=== PATIENT | female | born 1935 | race Caucasian/White ===

== ENCOUNTER 2017-08-17 02:10 | Inpatient (IN) | payer MEDICARE ==
[~2017-08-17] VITALS: Ht 154.9 cm; Wt 61.4 kg
[~2017-08-17 02:10] MED LIST: AMLO5TAB PO; AMLO5TAB21 PO
[2017-08-17 02:39] LABS: BASOPHILS % (AUTO) 0.6 % (0-1); EOSINOPHILS # (AUTO) 0.3 X10'3 (0-0.9); EOSINOPHILS % (AUTO) 4.9 % (0-6); HEMOGLOBIN 14.6 g/dl (12.0-16.0); LYMPHOCYTES # (AUTO) 2.7 X10'3 (1.1-4.8); LYMPHOCYTES % (AUTO) 41.8 % (21-51); MEAN CORPUSCULAR HEMOGLOBIN 32.8 PG (27.0-31.0); MEAN CORPUSCULAR HGB CONC 34.8 % (33.0-36.5); MEAN CORPUSCULAR VOLUME 94.4 FL (78-98); MEAN PLATELET VOLUME 9.1 FL (7.4-10.4); MONOCYTES # (AUTO) 0.7 X10'3 (0-0.9); MONOCYTES % (AUTO) 10.6 % (2-12); NEUTROPHILS # (AUTO) 2.7 X10'3 (1.8-7.7); NEUTROPHILS % (AUTO) 42.1 % (42-75); PLATELET COUNT 245 X10'3 (140-440); RED BLOOD COUNT 4.45 X10'6 (4.20-5.60); RED CELL DISTRIBUTION WIDTH 13.5 % (11.5-14.5); WHITE BLOOD COUNT 6.4 X10'3 (4.5-11.0)
[2017-08-17 02:45] LABS: INR 0.9 INR; PARTIAL THROMBOPLASTIN TIME 26 SECONDS (22-32); PROTHROMBIN TIME 9.7 SECONDS (9.0-12.0)
[2017-08-17 02:55] LABS: CLARITY,URINE CLEAR (Clear); COLOR,URINE YELLOW (Yellow); GLUCOSE, URINE NEGATIVE (Neg); KETONES,URINE NEGATIVE (Neg); LEUKOCYTE ESTERASE ,URINE NEGATIVE (Neg); NITRITES, URINE NEGATIVE (Neg); OCCULT BLOOD,URINE NEGATIVE (Neg); PROTEIN,URINE NEGATIVE (Neg); UROBILINOGEN,URINE 0.2 E.U/dL (0.2-1.0)
[2017-08-17 02:57] LABS: ALANINE AMINOTRANSFERASE 24 U/L (12-78); ALBUMIN 3.7 G/DL (3.4-5.0); ALBUMIN/GLOBULIN RATIO 0.9 (1.1-1.5); ALKALINE PHOSPHATASE 83 IU/L (46-116); ANION GAP 9 (8-16); ASPARTATE AMINO TRANSFERASE 16 U/L (10-37); BILIRUBIN,TOTAL 0.3 MG/DL (0.1-1.0); BLOOD UREA NITROGEN 22 MG/DL (7-18); BUN/CREATININE RATIO 20.8 (6.6-38.0); CALCIUM 9.2 MG/DL (8.5-10.1); CHLORIDE 103 MMOL/L (99-107); CREATININE 1.06 MG/DL (0.40-0.90); GLUCOSE 146 MG/DL (70-104); MAGNESIUM 2.4 MG/DL (1.5-2.4); POTASSIUM 3.6 MMOL/L (3.5-5.1); SODIUM 139 MMOL/L (135-145); TOTAL CARBON DIOXIDE 27.5 MMOL/L (24-32); TOTAL PROTEIN 7.8 G/DL (6.4-8.2); eGFR 50 ML/MIN
[2017-08-17 02:58] LABS: UA COLLECTION TYPE CLN CATCH MIDSTREAM
[2017-08-17] MEDS ORDERED: normal saline 1000ML IV soln IVB ONE (05:50)
[2017-08-17] MEDS ORDERED: meclizine 12.5mg tablet PO ONE (05:50)
[2017-08-17] MEDS ORDERED: normal saline 500ml IV soln 1,000 ML IV ONE ×2 (09:10→11:30)
[2017-08-17] MEDS ORDERED: magnesium 2GM in 50ml NS 50 ML IV PRN (09:15)
[2017-08-17] MEDS: K and/or MAG REPLACEMENT MC SCH (09:15)
[2017-08-17] MEDS ORDERED: magnesium hydroxide 30ml (MOM) UD suspension PO PRN (09:15)
[2017-08-17] MEDS ORDERED: potassium Cl 20 mEq SR tablet PO PRN ×2 (09:15)
[2017-08-17] MEDS ORDERED: ondansetron/PF 4mg/2ml inj IV PRN (09:15)
[2017-08-17] MEDS ORDERED: magnesium Cl slow-release 64mg tablet PO PRN (09:15)
[2017-08-17] MEDS ORDERED: potassium Cl 40MEQ/NS 500ml 500 ML IV PRN ×2 (09:15)
[2017-08-17] MEDS ORDERED: meclizine 12.5mg tablet PO PRN (09:15)
[2017-08-17] MEDS ORDERED: mag hydrox/Alum hydrox/simeth 30ml oral suspension PO PRN (09:15)
[2017-08-17] MEDS ORDERED: acetaminophen 325mg tablet PO PRN ×2 (09:15)
[2017-08-17] MEDS ORDERED: magnesium 4gm in 100ml NS 100 ML IV PRN (09:15)
[2017-08-17] MEDS: aspirin 325mg tablet PO SCH ×2 (09:25→10:30)
[2017-08-17 10:05] LABS: CHOL/HDL RATIO 9.6 (0.00-4.99); CHOLESTEROL 249 MG/DL (0-200); HDL CHOLESTEROL 26 MG/DL (35-60); LDL CHOLESTEROL 173 MG/DL (50-100); TRIGLYCERIDES 269 MG/DL (20-135)
[2017-08-17] MEDS: normal saline 1000ml 1,000 ML IV SCH ×2 (10:32→23:32)
[2017-08-17 11:05] VITALS: BP 143/72
[2017-08-17 18:00] VITALS: BP 143/69
[2017-08-17 20:00] VITALS: BP_SYST 130; BP_SYST 135; BP_SYST 140; BP_DIAS 62; BP_DIAS 65
[2017-08-17] MEDS ORDERED: temazepam 15mg capsule PO PRN (21:00)
[2017-08-17 22:00] VITALS: BP 116/61
[2017-08-18] VITALS (7 sets, daily range): BP systolic 125–157; BP diastolic 59–77
[2017-08-18] MEDS: normal saline 1000ml 1,000 ML IV SCH (04:52)
[2017-08-18 06:39] LABS: HEMATOCRIT 33.5 % (35.0-45.0); HEMOGLOBIN 11.6 g/dl (12.0-16.0); MEAN CORPUSCULAR HEMOGLOBIN 32.8 PG (27.0-31.0); MEAN CORPUSCULAR HGB CONC 34.6 % (33.0-36.5); MEAN CORPUSCULAR VOLUME 94.8 FL (78-98); MEAN PLATELET VOLUME 8.9 FL (7.4-10.4); PLATELET COUNT 195 X10'3 (140-440); RED BLOOD COUNT 3.53 X10'6 (4.20-5.60); RED CELL DISTRIBUTION WIDTH 13.8 % (11.5-14.5); WHITE BLOOD COUNT 4.9 X10'3 (4.5-11.0)
[2017-08-18] MEDS ORDERED: SYN0.088T PO (06:44)
[2017-08-18] MEDS ORDERED: TRIA1TAB3 PO (06:45)
[2017-08-18 06:50] LABS: ALBUMIN 2.8 G/DL (3.4-5.0); ANION GAP 6 (8-16); BLOOD UREA NITROGEN 20 MG/DL (7-18); BUN/CREATININE RATIO 20.2 (6.6-38.0); CALCIUM 8.5 MG/DL (8.5-10.1); CHLORIDE 110 MMOL/L (99-107); CREATININE 0.99 MG/DL (0.40-0.90); GLUCOSE 117 MG/DL (70-104); MAGNESIUM 2.3 MG/DL (1.5-2.4); POTASSIUM 4.1 MMOL/L (3.5-5.1); SODIUM 145 MMOL/L (135-145); TOTAL CARBON DIOXIDE 28.7 MMOL/L (24-32); eGFR 54 ML/MIN
[2017-08-18] MEDS: K and/or MAG REPLACEMENT MC SCH (08:00)
[2017-08-18] MEDS ORDERED: atorvastatin 20mg tablet PO SCH (08:00)
[2017-08-18] MEDS ORDERED: enoxaparin 40mg/0.4ml syringe SUBCUT SCH (08:00)
[2017-08-18] MEDS: aspirin 325mg tablet PO SCH (08:08)
[2017-08-18] MEDS ORDERED: APIX5TAB3 PO (15:09)
[2017-08-18] MEDS ORDERED: ATOR20TA66 PO (15:09)
[2017-08-18] MEDS ORDERED: apixaban 5mg tablet PO SCH (15:10)
[2017-08-18] MEDS ORDERED: levoTHYROXINE 25mcg tablet PO SCH (17:00)
== END 2017-08-18 16:15 | disposition home or self-care (01) | DRG 683 ==
LOC: ER 02:10 → ED HOLD 09:14 → ORTHO 4S 11:24
PROVIDERS: ADMIT Family Medicine; ATTEND Family Medicine
DX: N17.9 Acute kidney failure, unspecified (principal); G45.9 Transient cerebral ischemic attack, unspecified; E11.22 Type 2 diabetes mellitus with diabetic chronic kidney disease; I48.0 Paroxysmal atrial fibrillation; E03.9 Hypothyroidism, unspecified; E78.5 Hyperlipidemia, unspecified; E78.00 Pure hypercholesterolemia, unspecified; I12.9 Hypertensive chronic kidney disease with stage 1 through stage 4 chronic kidney disease, or unspecified chronic kidney disease; N18.9 Chronic kidney disease, unspecified; Z79.899 Other long term (current) drug therapy; Z87.891 Personal history of nicotine dependence
CPT/HCPCS: 36415; 70450; 70546; 70551; 71045; 72125; 72128; 72131; 72148; 80048; 80053; 80061; 81003; 83735; 84439; 84443; 84484; 85025; 85027; 85610; 85730; 87070; 93005; 93306; 93880; 96360; 96361; 97116; 97162; 99285; A6258; J1650; J7030; J8597

== ENCOUNTER 2017-08-28 14:30 | Inpatient (IN) | payer MEDICARE ==
[~2017-08-28] VITALS: Ht 149.9 cm; Wt 56.7 kg
[~2017-08-28 14:30] MED LIST changes: -AMLO5TAB PO; -AMLO5TAB21 PO; +ATOR40TA PO; +LEVO50TA PO; +RIVA20TA PO; +TRIA1CAP6 PO
[2017-08-30] VITALS (17 sets, daily range): BP systolic 124–167; BP diastolic 54–89
[2017-08-30] MEDS ORDERED: ringers solution, lacted 1,000 ML IV SCH (05:00)
[2017-08-30] MEDS ORDERED: famotidine 20mg tablet PO ONE (05:30)
[2017-08-30] MEDS ORDERED: ceFAZolin 2gm in dextrose, iso 100 ML IV ONE (05:30)
[2017-08-30] MEDS ORDERED: nitroGLYCERIN-Tridil 50MG/D5W 250 ML IV PRN ×2 (09:26→13:33)
[2017-08-30] MEDS ORDERED: phenylephrine inj 10 MG in normal saline 250ml IV soln 250 ML IV PRN ×2 (09:26→13:33)
[2017-08-30 10:36] LABS: CLARITY,URINE TURBID (Clear); COLOR,URINE YELLOW (Yellow); GLUCOSE, URINE NEGATIVE (Neg); KETONES,URINE NEGATIVE (Neg); LEUKOCYTE ESTERASE ,URINE NEGATIVE (Neg); NITRITES, URINE NEGATIVE (Neg); OCCULT BLOOD,URINE NEGATIVE (Neg); PH,URINE 5.5 (4.8-8.0); PROTEIN,URINE NEGATIVE (Neg); UROBILINOGEN,URINE 0.2 E.U/dL (0.2-1.0)
[2017-08-30 10:38] LABS: UA COLLECTION TYPE VOIDED
[2017-08-30 10:43] LABS: MUCUS STRANDS MANY /LPF (Neg); SQUAMOUS EPITHELIAL CELL,UR MANY /LPF (FEW); TRANSITIONAL EPI CELLS,URINE MODERATE /HPF
[2017-08-30 10:44] LABS: BACTERIA,URINE 4+ /HPF (Neg); RBC,URINE NONE SEEN /HPF (0-2); WBC,URINE 0-4 /HPF (0-4)
[2017-08-30] MEDS ORDERED: nitroGLYCERIN-Tridil 50MG/D5W 250 ML IV ONE (12:25)
[2017-08-30] MEDS ORDERED: fentaNYL /PF 50mcg/ml 5ml ampule ONE (12:27)
[2017-08-30] MEDS ORDERED: midazolam 2 mg/2 ml injection ONE (12:28)
[2017-08-30] MEDS ORDERED: LIDOcaine 1% 30ml preserv. free vial ONE (12:35)
[2017-08-30] MEDS ORDERED: heparin 10,000 units/1 ML INJ ONE (12:35)
[2017-08-30] MEDS ORDERED: sevoflurane 250ml liquid IH ONE (12:40)
[2017-08-30] MEDS ORDERED: ondansetron/PF 4mg/2ml inj IV PRN ×2 (13:05→13:35)
[2017-08-30] MEDS ORDERED: HYDROcodone/acetaminophen 10/325mg tab PO PRN (13:05)
[2017-08-30] MEDS ORDERED: PROPOFOL IV ONE (13:19)
[2017-08-30] MEDS ORDERED: LIDOcaine 1%/PF (10mg/ml) 5ml vial ONE (13:19)
[2017-08-30] MEDS ORDERED: rocuronium 10mg/ml inj IV ONE (13:19)
[2017-08-30] MEDS ORDERED: esmolol inj. 10 ML IV ONE (13:20)
[2017-08-30] MEDS ORDERED: heparin 1,000unit/ml 10ml vial 10 ML ONE (13:20)
[2017-08-30] MEDS ORDERED: ringers solution, lacted 1,000 ML IV ONE (13:32)
[2017-08-30] MEDS ORDERED: meperidine/PF 50mg/ml syringe IV ONE (13:35)
[2017-08-30] MEDS ORDERED: labetalol 20mg/4ml (5mg/ml) syringe IV PRN (13:35)
[2017-08-30] MEDS ORDERED: meperidine/PF 50mg/ml syringe IV PRN ×2 (13:35)
[2017-08-30] MEDS ORDERED: morphine 4 MG/ML inj SYRINge IV PRN ×2 (13:35)
[2017-08-30] MEDS ORDERED: hydrALAZINE 20mg/ml inj. IV PRN (13:35)
[2017-08-30] MEDS ORDERED: neostigmine methylsulfate 1 MG/ML 10ml vial ONE (13:41)
[2017-08-30] MEDS ORDERED: glycopyrrolate 0.2mg/ml inj ONE (13:41)
[2017-08-30] MEDS: ceFAZolin 1GM/D5W- ADD-VANTAGE 50 ML IV SCH (15:57)
[2017-08-30] MEDS: Potassium Cl inj 20 MEQ in ringers solution, lacted 1,000 ML IV SCH (20:56)
[2017-08-31] VITALS (16 sets, daily range): BP systolic 110–187; BP diastolic 47–86
[2017-08-31] MEDS: ceFAZolin 1GM/D5W- ADD-VANTAGE 50 ML IV SCH ×2 (00:16→08:33)
[2017-08-31 00:18] LABS: UA COLLECTION TYPE STRAIGHT CATH
[2017-08-31 00:19] LABS: CLARITY,URINE SLIGHTLY CLOUDY (Clear); COLOR,URINE YELLOW (Yellow); GLUCOSE, URINE NEGATIVE (Neg); KETONES,URINE 15 mg/dl (Neg); LEUKOCYTE ESTERASE ,URINE NEGATIVE (Neg); NITRITES, URINE NEGATIVE (Neg); OCCULT BLOOD,URINE TRACE-INTACT (Neg); PROTEIN,URINE 30 mg/dl (Neg); UROBILINOGEN,URINE 0.2 E.U/dL (0.2-1.0)
[2017-08-31 00:27] LABS: HYALINE CASTS 0-3 /LPF (NEGATIVE)
[2017-08-31 00:28] LABS: AMORPHOUS URATES 1+; RBC,URINE 0-2 /HPF (0-2); WBC,URINE 0-4 /HPF (0-4)
[2017-08-31 00:29] LABS: BACTERIA,URINE FEW /HPF (Neg); MUCUS STRANDS NONE SEEN /LPF (Neg); SQUAMOUS EPITHELIAL CELL,UR NONE SEEN /LPF (FEW)
[2017-08-31 05:45] LABS: BASOPHILS % (AUTO) 0.2 % (0-1); EOSINOPHILS # (AUTO) 0.2 X10'3 (0-0.9); EOSINOPHILS % (AUTO) 1.9 % (0-6); HEMATOCRIT 29.5 % (35.0-45.0); HEMOGLOBIN 10.5 g/dl (12.0-16.0); LYMPHOCYTES # (AUTO) 0.9 X10'3 (1.1-4.8); LYMPHOCYTES % (AUTO) 11.5 % (21-51); MEAN CORPUSCULAR HEMOGLOBIN 33.3 PG (27.0-31.0); MEAN CORPUSCULAR HGB CONC 35.7 % (33.0-36.5); MEAN CORPUSCULAR VOLUME 93.3 FL (78-98); MEAN PLATELET VOLUME 9.1 FL (7.4-10.4); MONOCYTES # (AUTO) 0.6 X10'3 (0-0.9); MONOCYTES % (AUTO) 7.6 % (2-12); NEUTROPHILS # (AUTO) 6.4 X10'3 (1.8-7.7); NEUTROPHILS % (AUTO) 78.8 % (42-75); PLATELET COUNT 202 X10'3 (140-440); RED BLOOD COUNT 3.17 X10'6 (4.20-5.60); RED CELL DISTRIBUTION WIDTH 13.3 % (11.5-14.5); WHITE BLOOD COUNT 8.1 X10'3 (4.5-11.0)
[2017-08-31 05:48] LABS: ALANINE AMINOTRANSFERASE 18 U/L (12-78); ALBUMIN 2.9 G/DL (3.4-5.0); ALBUMIN/GLOBULIN RATIO 0.9 (1.1-1.5); ALKALINE PHOSPHATASE 77 IU/L (46-116); ANION GAP 9 (8-16); ASPARTATE AMINO TRANSFERASE 20 U/L (10-37); BILIRUBIN,TOTAL 0.6 MG/DL (0.1-1.0); BLOOD UREA NITROGEN 12 MG/DL (7-18); BUN/CREATININE RATIO 12.9 (6.6-38.0); CALCIUM 8.6 MG/DL (8.5-10.1); CHLORIDE 104 MMOL/L (99-107); CREATININE 0.93 MG/DL (0.40-0.90); GLUCOSE 131 MG/DL (70-104); POTASSIUM 3.9 MMOL/L (3.5-5.1); SODIUM 140 MMOL/L (135-145); TOTAL CARBON DIOXIDE 27.5 MMOL/L (24-32); TOTAL PROTEIN 6.3 G/DL (6.4-8.2); eGFR 58 ML/MIN
[2017-08-31] MEDS: Potassium Cl inj 20 MEQ in ringers solution, lacted 1,000 ML IV SCH ×2 (05:53→16:45)
[2017-08-31] MEDS ORDERED: non-formulary drug (Atorvastatin Calcium* (Lipitor*) 1 TABLET) PO SCH (08:00)
[2017-08-31] MEDS ORDERED: non-formulary drug (Levothyroxine Sodium (Synthroid) 1 TAB) PO SCH (08:00)
[2017-08-31] MEDS: levoTHYROXINE 25mcg tablet PO SCH (08:32)
[2017-08-31] MEDS: atorvastatin 20mg tablet PO SCH (08:32)
[2017-08-31] MEDS: rivaroxaban 20mg tablet PO SCH (11:22)
[2017-08-31] MEDS ORDERED: nitroGLYCERIN-Tridil 50MG/D5W 250 ML IV PRN (11:50)
[2017-08-31] MEDS ORDERED: [UNRECOGNIZED DRUG - OTHER] PO SCH (12:30)
[2017-08-31] MEDS: triamterene/HCTZ 37.5/25mg tablet PO SCH (12:56)
[2017-09-01 03:00] VITALS: BP 140/89
[2017-09-01 06:00] VITALS: BP 114/64
[2017-09-01] MEDS: levoTHYROXINE 25mcg tablet PO SCH (09:09)
[2017-09-01] MEDS: rivaroxaban 20mg tablet PO SCH (09:09)
[2017-09-01] MEDS: atorvastatin 20mg tablet PO SCH (09:10)
[2017-09-01 11:00] VITALS: BP 114/66
[2017-09-01] MEDS: triamterene/HCTZ 37.5/25mg tablet PO SCH (12:30)
[2017-09-01] MEDS: Potassium Cl inj 20 MEQ in ringers solution, lacted 1,000 ML IV SCH (13:20)
[2017-09-01 15:00] VITALS: BP 137/71
[2017-09-01 18:00] VITALS: BP 128/74
[2017-09-01 22:00] VITALS: BP 160/74
[2017-09-02 02:00] VITALS: BP 155/72
[2017-09-02] MEDS: Potassium Cl inj 20 MEQ in ringers solution, lacted 1,000 ML IV SCH (05:24)
[2017-09-02 06:00] VITALS: BP 151/71
[2017-09-02] MEDS: rivaroxaban 20mg tablet PO SCH (07:40)
[2017-09-02] MEDS: levoTHYROXINE 25mcg tablet PO SCH (07:40)
[2017-09-02] MEDS: atorvastatin 20mg tablet PO SCH (07:40)
[2017-09-02 11:00] VITALS: BP 145/74
[2017-09-02] MEDS: triamterene/HCTZ 37.5/25mg tablet PO SCH (12:28)
[2017-09-02] MEDS ORDERED: AMLO5TAB4 PO (13:04)
[2017-09-02] MEDS ORDERED: amLODIPine 5mg tablet PO ONE (13:05)
== END 2017-09-02 14:30 | disposition home health service (06) | DRG 38 ==
LOC: EDSTATUS 14:30 → PAS IN 08-30 09:45 → EDSTATUS 08-30 12:45 → ICU 2S 08-30 15:01 → PCU 3S 08-31 11:30
PROVIDERS: ADMIT Surgery; ATTEND Family Medicine
PROC: 03CN0ZZ Extirpation of Matter from Left External Carotid Artery, Open Approach (ICD-10-PCS; principal; 2017-08-30 12:40)
DX: I65.23 Occlusion and stenosis of bilateral carotid arteries (principal); E44.0 Moderate protein-calorie malnutrition; E11.9 Type 2 diabetes mellitus without complications; E03.9 Hypothyroidism, unspecified; I10 Essential (primary) hypertension; E78.00 Pure hypercholesterolemia, unspecified; J45.909 Unspecified asthma, uncomplicated; M19.90 Unspecified osteoarthritis, unspecified site; Z79.01 Long term (current) use of anticoagulants; Z79.899 Other long term (current) drug therapy; Z87.891 Personal history of nicotine dependence; Z82.5 Family history of asthma and other chronic lower respiratory diseases; Z68.25 Body mass index [BMI] 25.0-25.9, adult
CPT/HCPCS: 36415; 80053; 81001; 85025; 86885; 86900; 86901; 87070; 95813; 95816; 97116; 97162; 97530; A4310; A4315; A4353; A6213; A6222; A6257; A6258; A6402; A6449; A7000; J0690; J1644; J2001; J2250; J2370; J2405; J2704; J2710; J3010; J3480; J3490; J7030; J7120

== ENCOUNTER 2018-07-22 11:31 | Inpatient (IN) | payer MEDICARE | END 2018-07-23 17:10 | disposition home or self-care (01) | LOC: ER 11:31 → ED HOLD 14:23 → PCU 3S 15:55 | DX: I24.9 Acute ischemic heart disease, unspecified (principal); I10 Essential (primary) hypertension; E78.00 Pure hypercholesterolemia, unspecified ==

== ENCOUNTER 2019-04-21 05:24 | Emergency (ER) | payer MEDICARE ==
[~2019-04-21] VITALS: Ht 149.9 cm; Wt 59.1 kg
[~2019-04-21 05:24] MED LIST changes: +ACET-75 PO; +AMLO5TAB4 PO; +ASPI-611 PO; -ATOR40TA PO; +CLOP75TA15 PO; +LOSA50TA64 PO; +PREMARIN CREAM TOP; +RIVA10TA PO; -RIVA20TA PO; -TRIA1CAP6 PO
--- NOTE | 2019-04-21 05:58 | NUR ---
Pt. transported to CT scan at this time by tech.
[2019-04-21 06:03] LABS: CLARITY,URINE CLEAR (Clear); COLOR,URINE YELLOW (Yellow); GLUCOSE, URINE NEGATIVE (Neg); KETONES,URINE TRACE mg/dl (Neg); LEUKOCYTE ESTERASE ,URINE TRACE (Neg); NITRITES, URINE NEGATIVE (Neg); OCCULT BLOOD,URINE NEGATIVE (Neg); PROTEIN,URINE NEGATIVE (Neg); UROBILINOGEN,URINE 0.2 E.U/dL (0.2-1.0)
[2019-04-21 06:06] LABS: BASOPHILS % (AUTO) 0.4 % (0-1); EOSINOPHILS # (AUTO) 0.2 X10'3 (0-0.9); EOSINOPHILS % (AUTO) 1.9 % (0-6); HEMATOCRIT 41.4 % (35.0-45.0); HEMOGLOBIN 13.9 g/dl (12.0-16.0); LYMPHOCYTES # (AUTO) 1.5 X10'3 (1.1-4.8); LYMPHOCYTES % (AUTO) 17.6 % (21-51); MEAN CORPUSCULAR HEMOGLOBIN 32.9 PG (27.0-31.0); MEAN CORPUSCULAR HGB CONC 33.6 g/dL (33.0-36.5); MEAN CORPUSCULAR VOLUME 97.8 FL (78-98); MEAN PLATELET VOLUME 8.9 FL (7.4-10.4); MONOCYTES # (AUTO) 0.8 X10'3 (0-0.9); MONOCYTES % (AUTO) 8.9 % (2-12); NEUTROPHILS # (AUTO) 6.1 X10'3 (1.8-7.7); NEUTROPHILS % (AUTO) 71.2 % (42-75); PLATELET COUNT 229 X10'3 (140-440); RED BLOOD COUNT 4.23 X10'6 (4.20-5.60); RED CELL DISTRIBUTION WIDTH 13.9 % (11.5-14.5); WHITE BLOOD COUNT 8.6 X10'3 (4.5-11.0)
[2019-04-21 06:10] LABS: UA COLLECTION TYPE CLN CATCH MIDSTREAM
--- NOTE | 2019-04-21 06:10 | NUR ---
Pt. returns to ED room [address] at this time.
[2019-04-21 06:12] LABS: BACTERIA,URINE FEW /HPF (Neg); MUCUS STRANDS FEW /LPF (Neg); RBC,URINE 0-2 /HPF (0-2); SQUAMOUS EPITHELIAL CELL,UR MANY /LPF (FEW); WBC,URINE 0-4 /HPF (0-4)
[2019-04-21 06:15] LABS: ALANINE AMINOTRANSFERASE 16 U/L (12-78); ALBUMIN 3.6 G/DL (3.4-5.0); ALBUMIN/GLOBULIN RATIO 0.8 (1.1-1.5); ALKALINE PHOSPHATASE 81 IU/L (46-116); ANION GAP 10 (8-16); ASPARTATE AMINO TRANSFERASE 22 U/L (10-37); BILIRUBIN,TOTAL 0.7 MG/DL (0.1-1.0); BLOOD UREA NITROGEN 11 MG/DL (7-18); BUN/CREATININE RATIO 10.6 (6.6-38.0); CALCIUM 9.1 MG/DL (8.5-10.1); CHLORIDE 102 MMOL/L (99-107); CREATININE 1.04 MG/DL (0.40-0.90); GLUCOSE 121 MG/DL (70-104); LIPASE 108 U/L (73-393); SODIUM 140 MMOL/L (135-145); TOTAL CARBON DIOXIDE 28.1 MMOL/L (24-32); eGFR 50 ML/MIN
[2019-04-21] MEDS ORDERED: ondansetron 4mg rapidly disintigrating tab PO ONE (06:40)
[2019-04-21] MEDS ORDERED: MAGN296S50 PO (06:40)
[2019-04-21] MEDS ORDERED: AMOX-419 PO (06:40)
[2019-04-21] MEDS ORDERED: BISA-155 PO (06:40)
[2019-04-21] MEDS ORDERED: amox tr/potassium clavulanate 500mg/125mg TAB PO ONE (06:40)
[2019-04-21 07:02] VITALS: BP 124/65
== END 2019-04-21 07:08 | disposition home or self-care (01) ==
LOC: ER 05:24
DX: K57.32 Diverticulitis of large intestine without perforation or abscess without bleeding (principal); K59.00 Constipation, unspecified; E78.00 Pure hypercholesterolemia, unspecified; I10 Essential (primary) hypertension; E11.9 Type 2 diabetes mellitus without complications; Z95.1 Presence of aortocoronary bypass graft; Z98.890 Other specified postprocedural states; Z86.73 Personal history of transient ischemic attack (TIA), and cerebral infarction without residual deficits; Z79.82 Long term (current) use of aspirin; Z79.899 Other long term (current) drug therapy
CPT/HCPCS: 36415; 74176; 80053; 81001; 83690; 85025; 99284

== ENCOUNTER 2019-08-09 07:48 | Emergency (ER) | payer MEDICARE ==
[~2019-08-09] VITALS: Ht 154.9 cm; Wt 52.0 kg
[~2019-08-09 07:48] MED LIST changes: +BISA-155 PO; +MAGN296S70 PO
[2019-08-09 08:31] LABS: BASOPHILS # (AUTO) 0.1 X10'3 (0-0.2); BASOPHILS % (AUTO) 1.4 % (0-1); EOSINOPHILS # (AUTO) 0.3 X10'3 (0-0.9); EOSINOPHILS % (AUTO) 6.4 % (0-6); HEMATOCRIT 39.6 % (35.0-45.0); HEMOGLOBIN 13.6 g/dl (12.0-16.0); LYMPHOCYTES # (AUTO) 1.3 X10'3 (1.1-4.8); LYMPHOCYTES % (AUTO) 28.2 % (21-51); MEAN CORPUSCULAR HEMOGLOBIN 32.6 PG (27.0-31.0); MEAN CORPUSCULAR HGB CONC 34.2 g/dL (33.0-36.5); MEAN CORPUSCULAR VOLUME 95.4 FL (78-98); MEAN PLATELET VOLUME 8.4 FL (7.4-10.4); MONOCYTES # (AUTO) 0.5 X10'3 (0-0.9); NEUTROPHILS # (AUTO) 2.4 X10'3 (1.8-7.7); PLATELET COUNT 220 X10'3 (140-440); RED BLOOD COUNT 4.15 X10'6 (4.20-5.60); RED CELL DISTRIBUTION WIDTH 13.9 % (11.5-14.5); WHITE BLOOD COUNT 4.5 X10'3 (4.5-11.0)
[2019-08-09 08:32] VITALS: BP 165/75
[2019-08-09 08:46] LABS: ALANINE AMINOTRANSFERASE 20 U/L (12-78); ALBUMIN 3.6 G/DL (3.4-5.0); ALKALINE PHOSPHATASE 77 IU/L (46-116); ANION GAP 6 (8-16); ASPARTATE AMINO TRANSFERASE 17 U/L (10-37); BILIRUBIN,TOTAL 0.3 MG/DL (0.1-1.0); BLOOD UREA NITROGEN 18 MG/DL (7-18); CALCIUM 8.9 MG/DL (8.5-10.1); CHLORIDE 108 MMOL/L (99-107); GLUCOSE 108 MG/DL (70-104); POTASSIUM 4.3 MMOL/L (3.5-5.1); SODIUM 142 MMOL/L (135-145); TOTAL CARBON DIOXIDE 28.1 MMOL/L (24-32); TOTAL PROTEIN 7.3 G/DL (6.4-8.2); eGFR 60 ML/MIN
[2019-08-09 08:47] LABS: PARTIAL THROMBOPLASTIN TIME 30 SECONDS (22-32)
[2019-08-09] MEDS ORDERED: ALBU8HFA PO (09:14)
== END 2019-08-09 09:29 | disposition home or self-care (01) ==
LOC: ER 07:49
DX: R06.02 Shortness of breath (principal); R05 Cough; E78.00 Pure hypercholesterolemia, unspecified; I10 Essential (primary) hypertension; E11.9 Type 2 diabetes mellitus without complications; Z95.1 Presence of aortocoronary bypass graft; Z87.891 Personal history of nicotine dependence; Z98.890 Other specified postprocedural states; Z79.82 Long term (current) use of aspirin; Z79.01 Long term (current) use of anticoagulants; Z79.899 Other long term (current) drug therapy
CPT/HCPCS: 36415; 71045; 80053; 83880; 84484; 85025; 85610; 85730; 93005; 99285

== ENCOUNTER 2020-07-04 20:35 | Emergency (ER) | payer MEDICARE ==
[~2020-07-04] VITALS: Ht 152.4 cm; Wt 60.5 kg
[2020-07-04 21:12] LABS: BASOPHILS # (AUTO) 0.1 X10'3 (0-0.2); BASOPHILS % (AUTO) 0.9 % (0-1); EOSINOPHILS # (AUTO) 0.4 X10'3 (0-0.9); EOSINOPHILS % (AUTO) 6.3 % (0-6); HEMATOCRIT 41.9 % (35.0-45.0); HEMOGLOBIN 14.1 g/dl (12.0-16.0); LYMPHOCYTES # (AUTO) 2.9 X10'3 (1.1-4.8); LYMPHOCYTES % (AUTO) 41.6 % (21-51); MEAN CORPUSCULAR HEMOGLOBIN 32.7 PG (27.0-31.0); MEAN CORPUSCULAR HGB CONC 33.7 g/dL (33.0-36.5); MEAN PLATELET VOLUME 9.1 FL (7.4-10.4); MONOCYTES # (AUTO) 0.7 X10'3 (0-0.9); MONOCYTES % (AUTO) 10.6 % (2-12); NEUTROPHILS # (AUTO) 2.8 X10'3 (1.8-7.7); NEUTROPHILS % (AUTO) 40.6 % (42-75); PLATELET COUNT 235 X10'3 (140-440); RED BLOOD COUNT 4.32 X10'6 (4.20-5.60); RED CELL DISTRIBUTION WIDTH 13.8 % (11.5-14.5); WHITE BLOOD COUNT 6.9 X10'3 (4.5-11.0)
--- NOTE | 2020-07-04 21:34 | NUR ---
KEYLA DAUGHTER [phone]
[2020-07-04 21:35] LABS: ALANINE AMINOTRANSFERASE 25 U/L (12-78); ALBUMIN 4.3 G/DL (3.4-5.0); ALKALINE PHOSPHATASE 90 IU/L (46-116); ANION GAP 8 (8-16); ASPARTATE AMINO TRANSFERASE 22 U/L (10-37); BILIRUBIN,TOTAL 0.4 MG/DL (0.1-1.0); BLOOD UREA NITROGEN 16 MG/DL (7-18); BUN/CREATININE RATIO 19.5 (6.6-38.0); CALCIUM 9.9 MG/DL (8.5-10.1); CHLORIDE 104 MMOL/L (99-107); CREATININE 0.82 MG/DL (0.40-0.90); GLUCOSE 111 MG/DL (70-104); SODIUM 142 MMOL/L (135-145); TOTAL CARBON DIOXIDE 30.2 MMOL/L (24-32); TOTAL PROTEIN 8.6 G/DL (6.4-8.2); eGFR 66 ML/MIN
[2020-07-04] MEDS ORDERED: ipratropium/albuterol 3ml nebule NEB ONE (22:40)
[2020-07-04 22:44] LABS: CLARITY,URINE CLEAR (Clear); COLOR,URINE YELLOW (Yellow); GLUCOSE, URINE NEGATIVE (Neg); KETONES,URINE NEGATIVE (Neg); LEUKOCYTE ESTERASE ,URINE NEGATIVE (Neg); NITRITES, URINE NEGATIVE (Neg); OCCULT BLOOD,URINE NEGATIVE (Neg); PROTEIN,URINE NEGATIVE (Neg); UROBILINOGEN,URINE 0.2 E.U/dL (0.2-1.0)
[2020-07-04 22:48] LABS: UA COLLECTION TYPE CLN CATCH MIDSTREAM
[2020-07-04 23:21] VITALS: BP 145/67
== END 2020-07-04 23:20 | disposition home or self-care (01) ==
LOC: ER 20:36
DX: I10 Essential (primary) hypertension (principal); R05 Cough; R06.02 Shortness of breath; I48.91 Unspecified atrial fibrillation; I25.10 Atherosclerotic heart disease of native coronary artery without angina pectoris; E78.00 Pure hypercholesterolemia, unspecified; J44.9 Chronic obstructive pulmonary disease, unspecified; K21.9 Gastro-esophageal reflux disease without esophagitis; E11.9 Type 2 diabetes mellitus without complications; Z86.73 Personal history of transient ischemic attack (TIA), and cerebral infarction without residual deficits; Z95.1 Presence of aortocoronary bypass graft; Z79.82 Long term (current) use of aspirin; Z79.899 Other long term (current) drug therapy
CPT/HCPCS: 36415; 71045; 80053; 81003; 83880; 84484; 85025; 93005; 94640; 94760; 99285

== ENCOUNTER 2020-08-16 07:00 | Emergency (ER) | payer MEDICARE ==
[~2020-08-16] VITALS: Ht 149.9 cm; Wt 65.0 kg
[2020-08-16] MEDS ORDERED: hydrALAZINE 20mg/ml inj. IV ONE (07:05)
[2020-08-16] MEDS ORDERED: aspirin 81mg tab.chew PO ONE (08:10)
[2020-08-16 09:12] LABS: BASOPHILS % (AUTO) 1.1 % (0-1); EOSINOPHILS # (AUTO) 0.3 X10'3 (0-0.9); EOSINOPHILS % (AUTO) 5.7 % (0-6); HEMATOCRIT 38.5 % (35.0-45.0); HEMOGLOBIN 12.7 g/dl (12.0-16.0); LYMPHOCYTES # (AUTO) 1.2 X10'3 (1.1-4.8); LYMPHOCYTES % (AUTO) 26.8 % (21-51); MEAN CORPUSCULAR HEMOGLOBIN 32.2 PG (27.0-31.0); MEAN CORPUSCULAR HGB CONC 33.1 g/dL (33.0-36.5); MEAN CORPUSCULAR VOLUME 97.4 FL (78-98); MEAN PLATELET VOLUME 9.2 FL (7.4-10.4); MONOCYTES # (AUTO) 0.4 X10'3 (0-0.9); MONOCYTES % (AUTO) 8.7 % (2-12); NEUTROPHILS # (AUTO) 2.6 X10'3 (1.8-7.7); NEUTROPHILS % (AUTO) 57.7 % (42-75); PLATELET COUNT 227 X10'3 (140-440); RED BLOOD COUNT 3.95 X10'6 (4.20-5.60); RED CELL DISTRIBUTION WIDTH 13.4 % (11.5-14.5); WHITE BLOOD COUNT 4.6 X10'3 (4.5-11.0)
[2020-08-16 09:31] LABS: ALANINE AMINOTRANSFERASE 27 U/L (12-78); ALBUMIN 3.5 G/DL (3.4-5.0); ALKALINE PHOSPHATASE 73 IU/L (46-116); ANION GAP 12 (8-16); ASPARTATE AMINO TRANSFERASE 22 U/L (10-37); BILIRUBIN,TOTAL 0.5 MG/DL (0.1-1.0); BLOOD UREA NITROGEN 13 MG/DL (7-18); BUN/CREATININE RATIO 18.3 (6.6-38.0); CALCIUM 9.2 MG/DL (8.5-10.1); CHLORIDE 106 MMOL/L (99-107); CREATININE 0.71 MG/DL (0.40-0.90); GLUCOSE 111 MG/DL (70-104); POTASSIUM 3.5 MMOL/L (3.5-5.1); SODIUM 143 MMOL/L (135-145); TOTAL CARBON DIOXIDE 25.4 MMOL/L (24-32); TOTAL PROTEIN 6.9 G/DL (6.4-8.2); eGFR 78 ML/MIN
[2020-08-16 09:35] LABS: MAGNESIUM 2.3 MG/DL (1.5-2.4)
[2020-08-16 10:14] VITALS: BP 137/59
== END 2020-08-16 10:05 | disposition home or self-care (01) ==
LOC: ER 07:00
DX: H53.8 Other visual disturbances (principal); I48.91 Unspecified atrial fibrillation; I25.10 Atherosclerotic heart disease of native coronary artery without angina pectoris; E78.00 Pure hypercholesterolemia, unspecified; I10 Essential (primary) hypertension; J44.9 Chronic obstructive pulmonary disease, unspecified; K21.9 Gastro-esophageal reflux disease without esophagitis; E11.9 Type 2 diabetes mellitus without complications; E07.9 Disorder of thyroid, unspecified; Z95.5 Presence of coronary angioplasty implant and graft
CPT/HCPCS: 36415; 70450; 71045; 80053; 83735; 83880; 84484; 85025; 93005; 96374; 99285; J0360; 99283; 99284

== ENCOUNTER 2020-11-21 21:31 | Emergency (ER) | payer MEDICARE ==
[~2020-11-21] VITALS: Ht 149.9 cm; Wt 56.8 kg
[2020-11-21 22:01] LABS: HEMOGLOBIN 14.3 g/dl (12.0-16.0); MEAN CORPUSCULAR HGB CONC 33.2 g/dL (33.0-36.5); WHITE BLOOD COUNT 8.1 X10'3 (4.5-11.0)
[2020-11-21 22:03] LABS: BASOPHILS # (AUTO) 0.1 X10'3 (0-0.2); BASOPHILS % (AUTO) 0.8 % (0-1); EOSINOPHILS # (AUTO) 0.4 X10'3 (0-0.9); LYMPHOCYTES # (AUTO) 3.7 X10'3 (1.1-4.8); LYMPHOCYTES % (AUTO) 45.4 % (21-51); MEAN CORPUSCULAR HEMOGLOBIN 32.2 PG (27.0-31.0); MEAN CORPUSCULAR VOLUME 96.9 FL (78-98); MEAN PLATELET VOLUME 8.9 FL (7.4-10.4); MONOCYTES # (AUTO) 0.7 X10'3 (0-0.9); MONOCYTES % (AUTO) 8.3 % (2-12); NEUTROPHILS # (AUTO) 3.3 X10'3 (1.8-7.7); NEUTROPHILS % (AUTO) 40.5 % (42-75); PLATELET COUNT 214 X10'3 (140-440); RED BLOOD COUNT 4.44 X10'6 (4.20-5.60); RED CELL DISTRIBUTION WIDTH 14.3 % (11.5-14.5)
[2020-11-21 22:12] LABS: ALANINE AMINOTRANSFERASE 22 U/L (12-78); ALBUMIN 3.8 G/DL (3.4-5.0); ALKALINE PHOSPHATASE 84 IU/L (46-116); ANION GAP 11 (8-16); ASPARTATE AMINO TRANSFERASE 17 U/L (10-37); BILIRUBIN,TOTAL 0.3 MG/DL (0.1-1.0); BLOOD UREA NITROGEN 18 MG/DL (7-18); BUN/CREATININE RATIO 19.8 (6.6-38.0); CHLORIDE 104 MMOL/L (99-107); CREATININE 0.91 MG/DL (0.40-0.90); GLUCOSE 162 MG/DL (70-104); POTASSIUM 3.7 MMOL/L (3.5-5.1); SODIUM 141 MMOL/L (135-145); TOTAL CARBON DIOXIDE 26.5 MMOL/L (24-32); TOTAL PROTEIN 7.8 G/DL (6.4-8.2); eGFR 59 ML/MIN
[2020-11-21] MEDS ORDERED: normal saline 1000ML IV soln IVB ONE (23:15)
[2020-11-21] MEDS ORDERED: aspirin 81mg tab.chew PO ONE (23:15)
[2020-11-21] MEDS ORDERED: amLODIPine 5mg tablet PO ONE (23:15)
[2020-11-21] MEDS ORDERED: amLODIPine 2.5mg tablet PO ONE (23:15)
[2020-11-22 00:36] VITALS: BP 124/75
== END 2020-11-22 00:38 | disposition home or self-care (01) ==
LOC: ER 21:32
DX: R07.89 Other chest pain (principal); I10 Essential (primary) hypertension; R06.02 Shortness of breath; I48.91 Unspecified atrial fibrillation; I25.10 Atherosclerotic heart disease of native coronary artery without angina pectoris; E78.00 Pure hypercholesterolemia, unspecified; J44.9 Chronic obstructive pulmonary disease, unspecified; K21.9 Gastro-esophageal reflux disease without esophagitis; E11.9 Type 2 diabetes mellitus without complications; Z86.72 Personal history of thrombophlebitis; Z95.1 Presence of aortocoronary bypass graft; Z79.82 Long term (current) use of aspirin; Z79.899 Other long term (current) drug therapy
CPT/HCPCS: 36415; 71045; 80053; 83880; 84484; 85025; 85379; 85610; 93005; 99285; J7030

== ENCOUNTER 2020-11-24 19:25 | Emergency (ER) | payer MEDICARE ==
[~2020-11-24] VITALS: Ht 149.9 cm; Wt 59.0 kg
[2020-11-24 20:52] LABS: BASOPHILS % (AUTO) 0.7 % (0-1); EOSINOPHILS # (AUTO) 0.2 X10'3 (0-0.9); EOSINOPHILS % (AUTO) 3.2 % (0-6); HEMATOCRIT 38.8 % (35.0-45.0); LYMPHOCYTES # (AUTO) 1.5 X10'3 (1.1-4.8); LYMPHOCYTES % (AUTO) 21.7 % (21-51); MEAN CORPUSCULAR HEMOGLOBIN 31.8 PG (27.0-31.0); MEAN CORPUSCULAR HGB CONC 33.5 g/dL (33.0-36.5); MEAN CORPUSCULAR VOLUME 94.8 FL (78-98); MEAN PLATELET VOLUME 8.5 FL (7.4-10.4); MONOCYTES # (AUTO) 0.5 X10'3 (0-0.9); MONOCYTES % (AUTO) 7.6 % (2-12); NEUTROPHILS # (AUTO) 4.7 X10'3 (1.8-7.7); NEUTROPHILS % (AUTO) 66.8 % (42-75); PLATELET COUNT 223 X10'3 (140-440); RED CELL DISTRIBUTION WIDTH 14.2 % (11.5-14.5)
[2020-11-24 21:02] LABS: ALANINE AMINOTRANSFERASE 24 U/L (12-78); ALBUMIN 3.5 G/DL (3.4-5.0); ALKALINE PHOSPHATASE 73 IU/L (46-116); ANION GAP 11 (8-16); ASPARTATE AMINO TRANSFERASE 19 U/L (10-37); BILIRUBIN,TOTAL 0.4 MG/DL (0.1-1.0); BLOOD UREA NITROGEN 22 MG/DL (7-18); BUN/CREATININE RATIO 25.6 (6.6-38.0); CALCIUM 8.8 MG/DL (8.5-10.1); CHLORIDE 106 MMOL/L (99-107); CREATININE 0.86 MG/DL (0.40-0.90); GLUCOSE 122 MG/DL (70-104); POTASSIUM 3.5 MMOL/L (3.5-5.1); SODIUM 141 MMOL/L (135-145); TOTAL PROTEIN 7.1 G/DL (6.4-8.2); eGFR 63 ML/MIN
[2020-11-24 21:10] LABS: TROPONIN I < 0.04 NG/ML (0.0-0.05)
[2020-11-24 21:13] VITALS: BP_DIAS 67
[2020-11-24] MEDS ORDERED: normal saline 1000ml 1,000 ML IV ONE (22:40)
[2020-11-24 23:59] VITALS: BP_SYST 162
== END 2020-11-25 00:05 | disposition home or self-care (01) ==
LOC: ER 19:26
DX: R53.1 Weakness (principal); T50.2X5A Adverse effect of carbonic-anhydrase inhibitors, benzothiadiazides and other diuretics, initial encounter; I25.810 Atherosclerosis of coronary artery bypass graft(s) without angina pectoris; E78.00 Pure hypercholesterolemia, unspecified; I10 Essential (primary) hypertension; J44.9 Chronic obstructive pulmonary disease, unspecified; K21.9 Gastro-esophageal reflux disease without esophagitis; E11.9 Type 2 diabetes mellitus without complications; I48.91 Unspecified atrial fibrillation; E07.9 Disorder of thyroid, unspecified; Z79.82 Long term (current) use of aspirin; Z79.899 Other long term (current) drug therapy; Z86.73 Personal history of transient ischemic attack (TIA), and cerebral infarction without residual deficits; Y92.89 Other specified places as the place of occurrence of the external cause
CPT/HCPCS: 36415; 71045; 80053; 82948; 83880; 84145; 84484; 85025; 93005; 99285

== ENCOUNTER 2021-01-27 08:53 | Day surgery (SDC) | payer MEDICARE ==
[2021-01-26 09:43] LABS: EOSINOPHILS # (AUTO) 0.3 X10'3 (0-0.9); EOSINOPHILS % (AUTO) 5.9 % (0-6); HEMATOCRIT 41.2 % (35.0-45.0); HEMOGLOBIN 13.6 g/dl (12.0-16.0); LYMPHOCYTES # (AUTO) 1.6 X10'3 (1.1-4.8); LYMPHOCYTES % (AUTO) 32.2 % (21-51); MEAN CORPUSCULAR HEMOGLOBIN 32.1 PG (27.0-31.0); MEAN CORPUSCULAR HGB CONC 33.1 g/dL (33.0-36.5); MEAN CORPUSCULAR VOLUME 96.8 FL (78-98); MEAN PLATELET VOLUME 8.7 FL (7.4-10.4); MONOCYTES # (AUTO) 0.4 X10'3 (0-0.9); MONOCYTES % (AUTO) 9.2 % (2-12); NEUTROPHILS # (AUTO) 2.5 X10'3 (1.8-7.7); NEUTROPHILS % (AUTO) 51.7 % (42-75); PLATELET COUNT 248 X10'3 (140-440); RED BLOOD COUNT 4.25 X10'6 (4.20-5.60); RED CELL DISTRIBUTION WIDTH 14.4 % (11.5-14.5); WHITE BLOOD COUNT 4.9 X10'3 (4.5-11.0)
[2021-01-26 09:59] LABS: PARTIAL THROMBOPLASTIN TIME 27 SECONDS (22-32)
[2021-01-26 10:23] LABS: ALBUMIN 3.5 G/DL (3.4-5.0); ANION GAP 10 (8-16); BLOOD UREA NITROGEN 18 MG/DL (7-18); CALCIUM 8.5 MG/DL (8.5-10.1); CHLORIDE 109 MMOL/L (99-107); GLUCOSE 109 MG/DL (70-104); POTASSIUM 4.2 MMOL/L (3.5-5.1); SODIUM 145 MMOL/L (135-145); TOTAL CARBON DIOXIDE 25.6 MMOL/L (24-32); eGFR 53 ML/MIN
[2021-01-27] VITALS (11 sets, daily range): BP systolic 123–158; BP diastolic 55–98
[~2021-01-27] VITALS: Ht 149.9 cm; Wt 58.5 kg
[2021-01-27] MEDS ORDERED: normal saline 1000ml 1,000 ML IV SCH (09:15)
[2021-01-27] MEDS ORDERED: cefazolin/dext.iso 2gm/100ml 100 ML IV ONE (09:15)
[2021-01-27] MEDS ORDERED: HYDR-4069 PO (09:30)
[2021-01-27] MEDS ORDERED: ASCO500C17 PO (09:33)
[2021-01-27] MEDS ORDERED: ALPH200C2 PO (09:33)
[2021-01-27] MEDS ORDERED: UBID100C16 PO (09:33)
[2021-01-27] MEDS ORDERED: midazolam 1 mg/ML 2ml injection ONE (09:57)
[2021-01-27] MEDS ORDERED: fentaNYL/PF 50MCG/1 ML 2ML syringe ONE (09:57)
[2021-01-27] MEDS ORDERED: ceFAZolin 1000mg inj ONE (09:58)
[2021-01-27] MEDS ORDERED: LIDOcaine 1% W/epiNEPHrine 1:100,000 20ml vial ONE (09:58)
[2021-01-27] MEDS ORDERED: HYDROcodone/acetaminophen 5mg/325mg tablet PO PRN (12:15)
[2021-01-27] MEDS ORDERED: HYDROcodone/acetaminophen 10/325mg tab PO PRN (12:15)
[2021-01-27] MEDS ORDERED: vancomycin/NS 1 GM ADD-VANTAGE 250 ML X 1 DOSE IV ONE (12:15)
== END 2021-01-27 17:00 | disposition home or self-care (01) ==
LOC: SSTAY O 08:53
PROVIDERS: ATTEND Internal Medicine Cardiovascular Disease
DX: I49.5 Sick sinus syndrome (principal); I10 Essential (primary) hypertension; I25.10 Atherosclerotic heart disease of native coronary artery without angina pectoris; I48.91 Unspecified atrial fibrillation; E78.00 Pure hypercholesterolemia, unspecified; J44.9 Chronic obstructive pulmonary disease, unspecified; K21.9 Gastro-esophageal reflux disease without esophagitis; E11.9 Type 2 diabetes mellitus without complications; Z86.73 Personal history of transient ischemic attack (TIA), and cerebral infarction without residual deficits; Z95.1 Presence of aortocoronary bypass graft; Z98.890 Other specified postprocedural states; Z79.899 Other long term (current) drug therapy; Z85.828 Personal history of other malignant neoplasm of skin
CPT/HCPCS: 33208; 36415; 71046; 80048; 85025; 85610; 85730; 93005; 99152; 99153; C1785; C1894; C1898; J0690; J2250; J3010; J3370; J7030; A4565; A4620; A6449

== ENCOUNTER 2022-02-10 16:17 | Emergency (ER) | payer MEDICARE ==
[~2022-02-10] VITALS: Ht 152.4 cm; Wt 59.1 kg
[~2022-02-10 16:17] MED LIST changes: -ACET-75 PO; +ALPH200C2 PO; +ASCO500C17 PO; -ASPI-611 PO; -BISA-155 PO; -CLOP75TA15 PO; +HYDR-4069 PO; -LOSA50TA64 PO; -MAGN296S70 PO; -PREMARIN CREAM TOP; +UBID100C16 PO
[2022-02-10 17:43] LABS: BASOPHILS # (AUTO) 0.1 X10'3 (0-0.2); EOSINOPHILS # (AUTO) 0.2 X10'3 (0-0.9); EOSINOPHILS % (AUTO) 3.9 % (0-6); HEMATOCRIT 40.1 % (35.0-45.0); HEMOGLOBIN 13.4 g/dl (12.0-16.0); LYMPHOCYTES # (AUTO) 1.4 X10'3 (1.1-4.8); LYMPHOCYTES % (AUTO) 22.7 % (21-51); MEAN CORPUSCULAR HEMOGLOBIN 31.9 PG (27.0-31.0); MEAN CORPUSCULAR HGB CONC 33.5 g/dL (33.0-36.5); MEAN CORPUSCULAR VOLUME 95.2 FL (78-98); MONOCYTES # (AUTO) 0.6 X10'3 (0-0.9); MONOCYTES % (AUTO) 9.1 % (2-12); NEUTROPHILS % (AUTO) 63.3 % (42-75); PLATELET COUNT 243 X10'3 (140-440); RED BLOOD COUNT 4.21 X10'6 (4.20-5.60); RED CELL DISTRIBUTION WIDTH 14.8 % (11.5-14.5); WHITE BLOOD COUNT 6.3 X10'3 (4.5-11.0)
[2022-02-10 17:58] LABS: ALANINE AMINOTRANSFERASE 23 U/L (12-78); ALBUMIN/GLOBULIN RATIO 1.1 (1.1-1.5); ALKALINE PHOSPHATASE 75 IU/L (46-116); ANION GAP 9 (8-16); ASPARTATE AMINO TRANSFERASE 22 U/L (10-37); BILIRUBIN,TOTAL 0.3 MG/DL (0.1-1.0); BLOOD UREA NITROGEN 15 MG/DL (7-18); BUN/CREATININE RATIO 16.9 (6.6-38.0); CALCIUM 9.4 MG/DL (8.5-10.1); CHLORIDE 105 MMOL/L (99-107); CREATININE 0.89 MG/DL (0.40-0.90); GLUCOSE 113 MG/DL (70-104); POTASSIUM 4.3 MMOL/L (3.5-5.1); SODIUM 141 MMOL/L (135-145); TOTAL CARBON DIOXIDE 26.7 MMOL/L (24-32); TOTAL PROTEIN 7.7 G/DL (6.4-8.2); eGFR 60 ML/MIN
[2022-02-10] MEDS ORDERED: iohexol 350MG/ML 100ml bottle IV ONE (21:20)
[2022-02-10] MEDS ORDERED: hydrALAZINE 20mg/ml inj. IV ONE (22:10)
[2022-02-10] MEDS ORDERED: acetaminophen 325mg tablet PO ONE (22:35)
[2022-02-10] MEDS ORDERED: normal saline 1000ML IV soln IVB ONE (22:35)
[2022-02-10] MEDS ORDERED: proCHLORperazine 10 MG/2 ml inj IV ONE (22:35)
[2022-02-10] MEDS ORDERED: haloperidol lactate 5mg/ml inj IM ONE (22:35)
[2022-02-10 23:26] VITALS: BP 143/87
== END 2022-02-10 23:29 | disposition home or self-care (01) ==
LOC: ER 16:18
DX: I11.9 Hypertensive heart disease without heart failure (principal); G43.909 Migraine, unspecified, not intractable, without status migrainosus; E78.00 Pure hypercholesterolemia, unspecified; J43.9 Emphysema, unspecified; K21.9 Gastro-esophageal reflux disease without esophagitis; E11.9 Type 2 diabetes mellitus without complications; E07.9 Disorder of thyroid, unspecified; Z88.8 Allergy status to other drugs, medicaments and biological substances
CPT/HCPCS: 36415; 70496; 70498; 71045; 80053; 82948; 83880; 84484; 85025; 93005; 96374; 96375; 99285; J0360; J0780; J3490; J7030; Q9967

== ENCOUNTER 2024-04-09 06:57 | Day surgery (SDC) | payer MEDICARE ==
[2024-04-08 14:53] LABS: BASOPHILS % (AUTO) 0.7 % (0-1); EOSINOPHILS # (AUTO) 0.2 X10'3 (0-0.9); EOSINOPHILS % (AUTO) 3.3 % (0-6); HEMATOCRIT 40.8 % (35.0-45.0); HEMOGLOBIN 13.4 g/dl (12.0-16.0); LYMPHOCYTES # (AUTO) 1.4 X10'3 (1.1-4.8); MEAN CORPUSCULAR HEMOGLOBIN 32.3 PG (27.0-31.0); MEAN CORPUSCULAR HGB CONC 32.7 g/dL (33.0-36.5); MEAN CORPUSCULAR VOLUME 98.7 FL (78-98); MONOCYTES # (AUTO) 0.5 X10'3 (0-0.9); NEUTROPHILS # (AUTO) 3.6 X10'3 (1.8-7.7); PLATELET COUNT 252 X10'3 (140-440); RED BLOOD COUNT 4.13 X10'6 (4.20-5.60); RED CELL DISTRIBUTION WIDTH 15.4 % (11.5-14.5); WHITE BLOOD COUNT 5.7 X10'3 (4.5-11.0)
[2024-04-08 14:59] LABS: ALBUMIN 3.5 G/DL (3.4-5.0); ANION GAP 7 (8-16); BLOOD UREA NITROGEN 22 MG/DL (7-18); BUN/CREATININE RATIO 19.5 (10.0-20.0); CALCIUM 8.5 MG/DL (8.5-10.1); CHLORIDE 105 MMOL/L (99-107); CREATININE 1.13 MG/DL (0.40-0.90); GLUCOSE 136 MG/DL (70-104); SODIUM 140 MMOL/L (135-145); TOTAL CARBON DIOXIDE 28.4 MMOL/L (24-32); eGFR 45 ML/MIN
[2024-04-08 15:00] LABS: INR 1.5 INR; PROTHROMBIN TIME 14.8 SECONDS (9.0-12.0)
[2024-04-08 15:04] LABS: POTASSIUM 3.8 MMOL/L (3.5-5.1)
[~2024-04-09] VITALS: Ht 152.4 cm; Wt 59.0 kg
[~2024-04-09 06:57] MED LIST changes: -HYDR-4069 PO; +HYDR25TA90 PO
[2024-04-09 07:19] VITALS: BP 191/86; PULSE 60; RESP 10; RESP 12; TEMP 97.4; O2SAT 97
[2024-04-09] MEDS ORDERED: LEVO75TA7 PO (07:40)
[2024-04-09] MEDS ORDERED: atropine 0.1mg/ml 10ml syringe IV ONE (07:40)
[2024-04-09] MEDS ORDERED: METO-384 PO (07:40)
[2024-04-09] MEDS ORDERED: morphine 10mg/ml inj. IV ONE (07:40)
[2024-04-09] MEDS ORDERED: diphenhydrAMINE 25mg capsule PO ONE (07:40)
[2024-04-09] MEDS ORDERED: HYDR50TA65 PO (07:40)
[2024-04-09] MEDS ORDERED: AMI200T PO (07:40)
[2024-04-09] MEDS ORDERED: RIVA20TA PO (07:40)
[2024-04-09] MEDS ORDERED: MIDAZolam 1mg/ml 10ml vial IV ONE (07:40)
[2024-04-09] MEDS ORDERED: LORazepam 0.5 MG tablet PO ONE (07:40)
[2024-04-09] MEDS ORDERED: normal saline 1000ml 1,000 ML IV SCH (07:40)
[2024-04-09] MEDS ORDERED: amiodarone 150mg/dext, iso-os 100 ML IV ONE (07:40)
[2024-04-09] MEDS ORDERED: OMEG1CAP46 PO (07:44)
== END 2024-04-09 09:00 | disposition home or self-care (01) ==
LOC: SSTAY O 06:57
PROVIDERS: ATTEND Internal Medicine Cardiovascular Disease
DX: I48.0 Paroxysmal atrial fibrillation (principal); Z53.8 Procedure and treatment not carried out for other reasons; R94.31 Abnormal electrocardiogram [ECG] [EKG]; I12.9 Hypertensive chronic kidney disease with stage 1 through stage 4 chronic kidney disease, or unspecified chronic kidney disease; N18.9 Chronic kidney disease, unspecified; E03.9 Hypothyroidism, unspecified; E78.5 Hyperlipidemia, unspecified; I35.0 Nonrheumatic aortic (valve) stenosis; Z86.73 Personal history of transient ischemic attack (TIA), and cerebral infarction without residual deficits; Z79.01 Long term (current) use of anticoagulants; Z79.899 Other long term (current) drug therapy; Z90.89 Acquired absence of other organs; Z95.0 Presence of cardiac pacemaker; Z98.890 Other specified postprocedural states; Z82.49 Family history of ischemic heart disease and other diseases of the circulatory system
CPT/HCPCS: 36415; 80048; 85025; 85610; 93005; J7030